=== PATIENT | male | born 1990 | race Caucasian/White ===

== ENCOUNTER 2021-03-29 22:40 | Emergency (ER) | payer BC, OTHER ==
[2021-03-29] MEDS ORDERED: Sodium Chloride 0.9% 10 ML Syringe FLUSH PRN (22:48)
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
[2021-03-30] MEDS ORDERED: HYDROmorphone 1 MG/ML Syringe IVPUSH ONE ×2 (00:44→01:39)
[2021-03-30] MEDS ORDERED: Ketorolac 30 MG/ML SDV IVPUSH ONE (01:39)
[2021-03-30] MEDS ORDERED: Iopamidol 612 MG/ML 100 ML Bottle IVPUSH ONE (01:46)
[2021-03-30] MEDS ORDERED: Sodium Chloride 0.9% 10 ML Syringe FLUSH SCH (02:00)
--- NOTE | 2021-03-30 14:05 | CT ---
CT abdomen and pelvis Technique: Multiple axial sections were obtained from above the dome of the diaphragm inferiorly through the pubic symphysis. Intravenous contrast was utilized. No oral contrast has been given. Reconstructed coronal and sagittal images were obtained. Comparison: Prior CT abdomen and pelvis exam of 03/02/12. Findings: Slight atelectasis is seen posteriorly within both lung bases. Liver shows no focal abnormality. Spleen appears within normal limits. Adrenal glands show no nodule. Gallbladder contains no calcified gallstones. Pancreas is within normal limits. Right and left kidneys show symmetric contrast enhancement. Minimal low density finding is seen within the upper right kidney measuring about 4 mm. This is too small to evaluate by Hounsfield unit measurements but most likely represents a small cyst. Abdominal aorta shows no aneurysm. No retroperitoneal adenopathy is seen. No mesenteric abnormalities are seen. No pelvic mass or adenopathy is seen. Appendix is seen which is normal. Bone window settings were reviewed. Moderate compression deformity is noted within T12. There is retrolisthesis of the posterior vertebral line by about 6.4 mm into the central canal causing mild central canal stenosis. There is an additional fracture within T12 involving the left lamina close to the spinous process. Mild compression deformity is seen within the superior endplate of T11. Posterior vertebral line is maintained within this level. Impression: 1. Fractures within T11 and T12 as described above. 2. Nothing acute is otherwise seen on CT study of the abdomen and pelvis. Diagnostic code #3 I agree with preliminary report from [facility], finalized on 03/30/21, 1:24 AM CDT, code 1
--- NOTE | 2021-03-30 14:14 | CT ---
CT lumbar spine Technique: Multiple axial sections were obtained from above the T10-11 disc inferiorly through the coccyx. Reconstructed coronal and sagittal images were obtained. Findings: T10-11: Posterior disc is preserved. Fracture is noted within the superior endplate of T11 causing mild compression deformity and anterior wedging. Posterior vertebral line is maintained. No additional fracture is noted within T11. T11-12: Moderate compression deformity is seen involving the superior endplate as well as inferior endplate of T12. Retrolisthesis of the posterior vertebral line is seen by about 6.4 mm causing mild central canal stenosis. Neural foramina is patent. Fracture is also noted of T12 involving the left side of the lamina close to the spinous process which shows no displacement. T12-L1: Slight posterior disc space narrowing is seen. Posterior disc is preserved. No central canal stenosis or neural foraminal stenosis is seen. L1-2: Slight posterior disc space narrowing is seen. Posterior disc is preserved. No central canal stenosis or neural foraminal stenosis is seen. L2-3: Posterior disc is preserved. No central canal stenosis or neural foraminal stenosis is seen. L3-4: Posterior disc is preserved. No central canal stenosis or neural foraminal stenosis is seen. L4-5: Posterior disc has a normal planar margin. No central canal stenosis or neural foraminal stenosis is seen. L5-S1: Slight physiologic disc bulge is seen posteriorly. No central canal stenosis or neural foraminal stenosis is seen. No additional fracture is seen. No abnormal subluxation is seen. Impression: 1. Mild compression deformity of T11. 2. Moderate compression deformity of T12. 6.2 mm of retrolisthesis of the posterior vertebral line into the central canal. This causes mild central canal stenosis. Nondisplaced lamina fracture noted on the left side close to the spinous process. 3. No other acute abnormality is appreciated. Diagnostic code #3 I agree with preliminary report from [facility], finalized on 03/30/21, 1:24 AM CDT, code 1
== END 2021-03-30 02:15 | disposition home or self-care (01) ==
LOC: JD.ED 22:40
DX: S22.080A Wedge compression fracture of T11-T12 vertebra, initial encounter for closed fracture (principal); V49.40XA Driver injured in collision with unspecified motor vehicles in traffic accident, initial encounter; Y93.39 Activity, other involving climbing, rappelling and jumping off
CPT/HCPCS: 36415; 72131; 74177; 80053; 83690; 85025; 96374; 96375; 96376; 99285; J1170; J1885; Q9967; 99284

== ENCOUNTER 2021-03-30 18:19 | Inpatient (IN) | payer BC, OTHER ==
[2021-03-30] MEDS ORDERED: Sodium Chloride 0.9% 10 ML Syringe FLUSH PRN (18:37)
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
[2021-03-30] MEDS ORDERED: Iopamidol 612 MG/ML 100 ML Bottle IVPUSH ONE (20:33)
[2021-03-30] MEDS ORDERED: Sodium Chloride 0.9% 10 ML Syringe FLUSH SCH (20:45)
[2021-03-30] MEDS ORDERED: Sodium Chloride 0.9% 100 ML IV SCH (20:45)
[2021-03-30] MEDS ORDERED: HYDROmorphone 0.5 MG/0.5 ML Syringe IVPUSH ONE (21:09)
[2021-03-31] MEDS: HYDROmorphone 0.5 MG/0.5 ML Syringe IVPUSH PRN ×3 (00:31→13:24)
[2021-03-31] MEDS: Acetaminophen/oxyCODONE 325-5 MG Tab PO PRN ×4 (04:43→23:33)
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
[2021-03-31] MEDS ORDERED: Docusate Sodium 100 MG Cap PO PRN (08:01)
[2021-03-31] MEDS: Cyclobenzaprine 10 MG Tab PO PRN ×3 (08:17→23:32)
[2021-03-31] MEDS: Levothyroxine 125 MCG Tab PO SCH (08:17)
--- NOTE | 2021-03-31 08:26 | CT ---
CT chest Technique: Multiple axial sections were obtained from above the dome of the diaphragm inferiorly through the lung bases. Intravenous contrast was utilized. Reconstructed coronal and sagittal images were obtained. Comparison: Prior CT chest study of 03/02/12. Prior CT abdomen and pelvis study of 03/29/21. Findings: Thoracic aorta shows no aneurysm. Mediastinum shows no adenopathy. No axillary adenopathy is noted. No pericardial thickening is seen. Fatty infiltration is seen within the liver. Gallbladder contains increased density which most likely represents vicarious excretion of contrast. Worsening areas of increased density are noted within both posterior lungs as an interval change from prior chest CT compatible with worsening atelectasis. Lungs otherwise are clear. No pneumothorax is seen. No significant pleural effusion is seen. Bone window settings were reviewed which show stable compression deformities within T11 and T12. No additional osseous abnormality is appreciated. Impression: 1. Increasing atelectasis within both posterior lungs from prior CT abdomen and pelvis study. 2. Stable compression deformities within the T11 and T12 vertebral bodies. 3. Other incidental findings as noted above. Diagnostic code #3 I agree with preliminary report from [facility], finalized on 03/30/21, 9:53 PM CDT, code 1
[2021-04-01] MEDS ORDERED: Magnesium Hydroxide 400 MG/5 ML Susp 30 ML Cup PO PRN (01:41)
[2021-04-01] MEDS: Acetaminophen/oxyCODONE 325-5 MG Tab PO PRN ×4 (05:03→22:03)
[2021-04-01] MEDS: Levothyroxine 125 MCG Tab PO SCH (08:14)
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
[2021-04-01] MEDS ORDERED: Ondansetron 4 MG/2 ML SDV IVPUSH PRN (13:33)
[2021-04-01] MEDS ORDERED: Polyethylene Glycol 3350 Powder 17 GM Packet PO PRN (13:35)
[2021-04-02] MEDS: Acetaminophen/oxyCODONE 325-5 MG Tab PO PRN (05:26)
[2021-04-02] MEDS: Levothyroxine 125 MCG Tab PO SCH (09:18)
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
== END 2021-04-02 13:05 | disposition home or self-care (01) | DRG 552 ==
LOC: JD.ED 18:19 → JD.MS 23:06 → OBSVTOIN 04-01 09:06
PROVIDERS: ADMIT Surgery; ATTEND Surgery
DX: S22.080A Wedge compression fracture of T11-T12 vertebra, initial encounter for closed fracture (principal); R09.02 Hypoxemia; V89.2XXA Person injured in unspecified motor-vehicle accident, traffic, initial encounter; Z79.890 Hormone replacement therapy; Z79.899 Other long term (current) drug therapy; H54.7 Unspecified visual loss; J45.909 Unspecified asthma, uncomplicated; Z87.891 Personal history of nicotine dependence; Z20.822 Contact with and (suspected) exposure to COVID-19
CPT/HCPCS: 36415; 36600; 71260; 71260-26; 80053; 82803; 85025; 94760; 94761; 96374; 96375; 96376; 99284; 99285-25; A9270-GY; G0378; J1170; J2405; Q9967; U0002